=== PATIENT | male | born 1965 | race Caucasian/White ===

== ENCOUNTER 2017-05-07 05:45 | Emergency (ER) | payer MEDICAID ==
[~2017-05-07] VITALS: Ht 185.4 cm; Wt 66.7 kg
[~2017-05-07 05:45] MED LIST: NKM
[2017-05-07 05:55] VITALS: BP 108/69
[2017-05-07] MEDS ORDERED: PERMETHRIN60 GM TOPIC (06:07)
--- NOTE | 2017-05-07 06:10 | Emergency Room Report ---
History of Present Illness General Chief Complaint: Skin Rash/Abscess Source: Patient Present Illness HPI 51-year-old male, presenting with a rash to arms neck and chest and hands. The last 2 weeks. Serum his left arm Naprosyn to his right. Very itchy. No fever no chills. No new drugs. Eating and drinking well Allergies: Coded Allergies: IODINE (Verified Allergy, Severe, rash, 11/18/12) Patient History Past Medical History: see triage record Past Surgical History: none Pertinent Family History: none Reviewed Nursing Documentation: PMH: Agreed, PSxH: Agreed Nursing Documentation-PMH Past Medical History: No History, Except For Review of Systems All Other Systems: negative except mentioned in HPI Physical Exam Vital Signs Date Time Temp Pulse Resp B/P (MAP) Pulse Ox O2 Delivery O2 Flow Rate FiO2 05/07/17 05:54 98.2 90 16 108/69 98 Room Air Sp02 EP Interpretation: reviewed, normal General Appearance: normal inspection, well appearing, no apparent distress, alert, GCS 15, non-toxic Head: normocephalic, atraumatic Eyes: bilateral eye normal inspection, bilateral eye PERRL, bilateral eye EOMI ENT: normal ENT inspection, normal pharynx, normal voice, moist mucus membranes Neck: normal inspection, full range of motion, supple Respiratory: normal inspection, lungs clear, normal breath sounds, no respiratory distress, no retraction, no wheezing, speaking full sentences, chest symmetrical Cardiovascular #1: normal inspection, regular rate, rhythm, no edema, normal capillary refill Cardiovascular #2: 2+ radial (R), 2+ radial (L) Gastrointestinal: normal inspection, non tender, soft, non-distended, no guarding Genitourinary: no CVA tenderness Musculoskeletal: normal inspection, back normal, normal range of motion, non- tender Neurologic: normal inspection, alert, oriented x3, responsive, motor strength/ tone normal, sensory intact, normal gait, speech normal Psychiatric: normal inspection, judgement/insight normal, memory normal Skin: warm/dry, well hydrated, normal turgor, other - Diffuse scabbed rash on arms neck interweb fingers Medical Decision Making Diagnostic Impression: Primary Impression: Scabies ER Course 51-year-old male with rash DDX: Appears to be in scabies Plan: None emergency room ER course: Patient has remained stable during ED stay. Disposition: Patient is to be discharged to home. Prescriptions given are permethrin cream FU with doctor 1 week Please note that this Emergency Department Report was dictated using [employer] stock transfer clerk technology software, occasionally this can lead to erroneous entry secondary to interpretation by the dictation equipment Last Vital Signs Date Time Temp Pulse Resp B/P (MAP) Pulse Ox O2 Delivery O2 Flow Rate FiO2 05/07/17 05:54 98.2 90 16 108/69 98 Room Air Disposition: HOME, SELF-CARE Condition: Stable Scripts Permethrin* (ELIMITE*) 60 Gm Cream..g. 1 APPLIC TOPIC ONCE, #60 GM 0 Refills Apply cream from head to toe; leave on for 8-14 hours before washing off with water; may reapply in 1 week if live mites appear. Prov: Julio Kearney M.D. 05/07/17 Referrals: NOT CHOSEN IPA/,REFERRING (PCP) Patient Instructions: Scabies, Pediatric Julio Kearney M.D. May 07, 2017 06:10
[2017-05-07 06:18] VITALS: BP 108/69
== END 2017-05-07 06:19 | disposition home or self-care (01) ==
LOC: EMR 06:06
DX: B86 Scabies (principal)
CPT/HCPCS: 99283